=== PATIENT | male | born 1960 | race Caucasian/White ===

== ENCOUNTER 2022-09-21 12:32 | Emergency (ER) | payer MEDICARE, OTHER ==
[~2022-09-21] VITALS: Ht 180.3 cm; Wt 68.0 kg
[~2022-09-21 12:32] MED LIST: EPINEPHrine PFS 0.1 MG/ML SYR IVP ONE
--- NOTE | 2022-09-21 12:44 | NUR ---
Called [facility] no answer.
--- NOTE | 2022-09-21 12:46 | NUR ---
Called and spoke to Violeta @ [employer], stating homicide investigator will call us back shortly.
--- NOTE | 2022-09-21 12:55 | NUR ---
Called and spoke to Saritha Hernadez [facility], recieved a work case #:[id number]. She will call back later to recieve search planner's case number and for next of kin information.
--- NOTE | 2022-09-21 13:13 | NUR ---
@1230 ER CALLED FULL ARREST WAS COMING IN. RTs SET UP FOR INTUBATION AND CPR WAS TAKEN OVER FOR BI DATA ARCHITECT. MEDS WERE GIVIN BY NURSE DR DAVIS INTUBATED PT WITH 7.5 SECURED @24 @TEETH POSITIVE COLOR CHANGE IN CO2 DETECTER. ANCHORFAST WAS PLACED TO SECURE TUBE. T.O.D WAS CALLED @[address] DAVIS
--- NOTE | 2022-09-21 13:17 | NUR ---
Spoke to Christiano from [employer] office to verify information. Christiano said he will call back.
--- NOTE | 2022-09-21 13:42 | NUR ---
Per Christiano, need PMD before investigation can continue. Call back #: [phone] once information is obtained.
--- NOTE | 2022-09-21 13:50 | NUR ---
Per Grayson, son, does not know what patients PCP is. Only knows patient is a [facility] patient.
--- NOTE | 2022-09-21 14:01 | NUR ---
Spoke to Barbara @ [facility], patient's PCP is Dr. Hon Dave Celaya [facility] [address] [place] [id number]
--- NOTE | 2022-09-21 14:15 | NUR ---
Called and spoke to JUN Adrian ([employer]) release #: [id number]. Per Christiano, have family pick a mortuary and take belongings. Recommended a medical social worker to help with the mortuary process.
--- NOTE | 2022-09-21 14:31 | NUR ---
Called and spoke to Joslyn [facility] to update next of kins information.
--- NOTE | 2022-09-21 14:53 | NUR ---
Patient was moved from bed 5 to bed 1.
--- NOTE | 2022-09-21 14:59 | NUR ---
DC PLANNING MET WITH PTS FAMILY IN QUIET ROOM TO PROVIDE FAMILY WITH GRIEF SUPPORT TO PROCESS LOSS OF PT. FAMILY APPEARS TO BE GRIEVING APPROPRIATELY AND REQUESTED SW TO CALL [facility], . SPOKE WITH MARISSA AND PROVIDED ALL PERTINENT INFORMATION NEEDED. MARISSA REPORTS MORTUARY SERVICE WILL BOX PRINTER PTS BODY AT 5PM AND REPORTS DIRECTOR WILL BE IN TOUCH WITH FAMILY W/IN 72HRS TO COMPLETE ALL FINANCIAL PAPERWORK WELL ARRANGEMENTS. SW ENDORSED TO PT'S FAMILY. FAMILY IS AWARE OF P/UP TIME AND IS AWARE DIRECTORS WILL BE IN CONTACT WITH FAMILY TO COMPLETE FINANCIAL, WELL , ARRANGEMENT SERVICES. ENDORSED P/UP TIME TO MANAGEMENT ADVISOR WHO REPORTS HE WILL ENDORSE TO ED.
--- NOTE | 2022-09-21 15:30 | NUR ---
Spoke to Jt @ [facility], updated her on patients mortuary. Patients mortuary: [facility] in [place].
--- NOTE | 2022-09-21 16:53 | NUR ---
Spoke to Florecita [facility] to update them on patients mortuary status.
--- NOTE | 2022-09-21 17:03 | NUR ---
PT CHART HANDED TO INSULATOR TECHNICIAN, PT PLACED IN BODY BAG, PER INSULATOR TECHNICIAN, MORTUARY WILL FACTORY ASSEMBLER AT [phone].
--- NOTE | 2022-09-21 17:27 | NUR ---
MORTUARY AT BEDSIDE
--- NOTE | 2022-09-21 18:26 | NUR ---
Spoke to Ulisses Hernadez [facility] to update him on patient being taken to mortuary
== END 2022-09-21 12:34 ==
LOC: MED 12:32
DX: I46.9 Cardiac arrest, cause unspecified (principal); I10 Essential (primary) hypertension; E11.9 Type 2 diabetes mellitus without complications; I25.10 Atherosclerotic heart disease of native coronary artery without angina pectoris
CPT/HCPCS: 31500; 92950; 99285; J0171; 94667